=== PATIENT | female | born 2000 | race Caucasian/White ===

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

== ENCOUNTER 2018-12-11 16:45 | Emergency (ER) | payer BC, OTHER, SELFPAY ==
[2018-12-11] MEDS ORDERED: HYDROcodone/Acetaminophen 10/325 mg Tablet ONE (18:52)
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
[2018-12-11 20:09] LABS: Pregnancy Test - Urine (BHCG) Negative (Negative); Pregu Control Background? CLEAR/WHITE (CLR/WHITE); Pregu Control Bar Appear? YES (CONTROL BAR); Specific Gravity 1.013 (1.002-1.036)
== END 2018-12-11 20:11 | disposition home or self-care (01) ==
LOC: ERS 16:45
DX: M51.26 Other intervertebral disc displacement, lumbar region (principal); F17.210 Nicotine dependence, cigarettes, uncomplicated; V43.52XA Car driver injured in collision with other type car in traffic accident, initial encounter
CPT/HCPCS: 70450; 72125; 72131; 81025